=== PATIENT | female | born 1985 | race Caucasian/White ===

== ENCOUNTER → 2019-07-26 | Outpatient (CLI) | payer BC ==
[2019-07-26 17:47] LABS: HEMATOCRIT 39 % (35-52); HEMOGLOBIN 13.5 G/DL (11.5-16.0); LYMPHOCYTES % (AUTO) 22 % (12-44); MEAN CORPUSCULAR HEMOGLOBIN 30 PG (25-34); MEAN CORPUSCULAR HGB CONC 35 G/DL (32-36); MEAN CORPUSCULAR VOLUME 86 FL (80-99); MEAN PLATELET VOLUME 8.7 FL (7.4-10.4); MONOCYTES % (AUTO) 6 % (0-12); NEUTROPHILS % (AUTO) 71 % (42-75); PLATELET COUNT 330 10^3/uL (130-400); RED CELL DISTRIBUTION WIDTH 12.4 % (10.0-14.5); WHITE BLOOD COUNT 13.3 10^3/uL (4.3-11.0)
[2019-07-26 17:48] LABS: BASOPHILS # (AUTO) 0.1 10^3/uL (0.0-0.1); BASOPHILS % (AUTO) 0 % (0-10); EOSINOPHILS # (AUTO) 0.1 10^3/uL (0.0-0.3); EOSINOPHILS % (AUTO) 1 % (0-10); MONOCYTES # (AUTO) 0.8 X 10^3 (0.0-1.0); NEUTROPHILS # (AUTO) 9.4 X 10^3 (1.8-7.8)
== END ==
LOC: FS 17:11
PROVIDERS: ATTEND Family Medicine
DX: Z02.89 Encounter for other administrative examinations (principal)
CPT/HCPCS: 85025; 86592; 86703; 86705; 86706; 86765; 86850; 86900; 86901; 87088; 87340

== ENCOUNTER → 2019-09-27 | Outpatient (CLI) | payer BC | LOC: LAB FS 16:39 | PROVIDERS: ATTEND Family Medicine | DX: Z34.00 Encounter for supervision of normal first pregnancy, unspecified trimester (principal); Z3A.00 Weeks of gestation of pregnancy not specified | CPT/HCPCS: 36415; 82105; 82677; 84702; 86336; 87491; 87591 ==

== ENCOUNTER → 2019-11-29 | Outpatient (CLI) | payer BC ==
[2019-11-29 10:04] LABS: HEMATOCRIT 31 % (35-52); HEMOGLOBIN 10.4 G/DL (11.5-16.0); MEAN CORPUSCULAR HEMOGLOBIN 29 PG (25-34); MEAN CORPUSCULAR HGB CONC 33 G/DL (32-36); MEAN CORPUSCULAR VOLUME 87 FL (80-99); WHITE BLOOD COUNT 10.7 10^3/uL (4.3-11.0)
[2019-11-29 10:05] LABS: BASOPHILS % (AUTO) 0 % (0-10); EOSINOPHILS # (AUTO) 0.1 10^3/uL (0.0-0.3); EOSINOPHILS % (AUTO) 1 % (0-10); LYMPHOCYTES # (AUTO) 1.9 X 10^3 (1.0-4.0); LYMPHOCYTES % (AUTO) 18 % (12-44); MEAN PLATELET VOLUME 8.2 FL (7.4-10.4); MONOCYTES # (AUTO) 0.8 X 10^3 (0.0-1.0); MONOCYTES % (AUTO) 8 % (0-12); NEUTROPHILS # (AUTO) 7.9 X 10^3 (1.8-7.8); NEUTROPHILS % (AUTO) 73 % (42-75); PLATELET COUNT 292 10^3/uL (130-400); RED CELL DISTRIBUTION WIDTH 12.4 % (10.0-14.5)
== END ==
LOC: LAB FS 09:36
PROVIDERS: ATTEND Family Medicine
DX: Z34.00 Encounter for supervision of normal first pregnancy, unspecified trimester (principal)
CPT/HCPCS: 36415; 82950; 85025; 86780

== ENCOUNTER → 2020-01-27 | Outpatient (CLI) | payer BC | LOC: LAB FS 15:06 | PROVIDERS: ATTEND Family Medicine | DX: Z34.90 Encounter for supervision of normal pregnancy, unspecified, unspecified trimester (principal) | CPT/HCPCS: 87081 ==

== ENCOUNTER 2020-02-23 07:27 | Inpatient (IN) | payer BC ==
[~2020-02-23] VITALS: Ht 149.9 cm; Wt 63.4 kg
[2020-02-23] VITALS (11 sets, daily range): BP systolic 113–139; BP diastolic 60–85
--- NOTE | 2020-02-23 07:34 | NUR ---
ALTAF TAMAYO presented to unit via W/C from ED, accompanied by S/O, with c/o CONTRACTIONS. ALTAF TAMAYO weighed, gowned, voided, and to bed. EFHM and TOCO applied, VS taken. ALTAF TAMAYO oriented to bed controls, call light, TV, heat, and A/C controls.
--- NOTE | 2020-02-23 07:54 | NUR ---
DR. ALVAREZ NOTIFIED OF PT'S ARRIVAL, C/O, SVE, REVIEW OF STRIP. ORDERS RECEIVED TO CONTINUE MONITORING FOR ONE HOUR AND RECHECK.
[2020-02-23] MEDS ORDERED: PNV11TAB5 PO (08:12)
--- NOTE | 2020-02-23 08:55 | NUR ---
DR. ALVAREZ CALLED, NO ANSWER, MESSAGE LEFT TO RETURN PHONE CALL.
--- NOTE | 2020-02-23 08:57 | NUR ---
DR. ALVAREZ CALLED UNIT, UPDATED ON LATEST SVE, REVIEW OF STRIP. NEW ORDERS RECEIVED.
[2020-02-23] MEDS ORDERED: D5 LR IV SOLUTION 1,000 ML IV ONE (09:05)
[2020-02-23] MEDS ORDERED: MINERAL OIL CONCENTRATE 99.9% 15 ML UDC TOP PRN (09:15)
[2020-02-23] MEDS: D5 LR IV SOLUTION 1,000 ML IV SCH ×2 (09:32→13:27)
[2020-02-23 09:50] LABS: BASOPHILS % (AUTO) 0 % (0-10); EOSINOPHILS % (AUTO) 0 % (0-10); HEMATOCRIT 42 % (35-52); HEMOGLOBIN 14.5 G/DL (11.5-16.0); LYMPHOCYTES # (AUTO) 1.6 X 10^3 (1.0-4.0); LYMPHOCYTES % (AUTO) 11 % (12-44); MEAN CORPUSCULAR HEMOGLOBIN 29 PG (25-34); MEAN CORPUSCULAR HGB CONC 35 G/DL (32-36); MEAN CORPUSCULAR VOLUME 83 FL (80-99); MEAN PLATELET VOLUME 10.2 FL (7.4-10.4); MONOCYTES # (AUTO) 0.7 X 10^3 (0.0-1.0); MONOCYTES % (AUTO) 5 % (0-12); NEUTROPHILS # (AUTO) 11.7 X 10^3 (1.8-7.8); NEUTROPHILS % (AUTO) 83 % (42-75); PLATELET COUNT 225 10^3/uL (130-400); WHITE BLOOD COUNT 14.1 10^3/uL (4.3-11.0)
[2020-02-23 09:55] LABS: BILIRUBIN,URINE NEGATIVE (NEGATIVE); CLARITY,URINE SL CLOUDY; COLOR,URINE YELLOW; GLUCOSE, URINE (UA) NEGATIVE (NEGATIVE); KETONES,URINE NEGATIVE (NEGATIVE); LEUKOCYTE ESTERASE ,URINE NEGATIVE (NEGATIVE); NITRITE,URINE NEGATIVE (NEGATIVE); PH,URINE 6.5 (5-9); PROTEIN,URINE TRACE (NEGATIVE)
--- OUTSIDE RECORDS SUMMARY | 2020-02-23 09:57 | XMS REPORT | Continuity of Care Document ---
Author Organization Unknown Address Unknown Phone Unavailable Allergies There is no data. Medications There is no data. Problems Date Dx Coded Attending Type Code Diagnosis Diagnosed By 07/30/2019 MAHI ALVAREZ MD Ot Z02.89 ENCOUNTER FOR OTHER ADMINISTRATIVE EXAMI 08/12/2019 MAHI ALVAREZ MD Ot Z02.89 ENCOUNTER FOR OTHER ADMINISTRATIVE EXAMI 09/29/2019 MAHI ALVAREZ MD Ot Z34.00 ENCNTR FOR SUPRVSN OF NORMAL FIRST PREGN 09/29/2019 MAHI ALVAREZ MD Ot Z3A.00 WEEKS OF GESTATION OF NOT SPEC 10/14/2019 MAHI ALVAREZ MD Ot Z34.00 ENCNTR FOR SUPRVSN OF NORMAL FIRST PREGN 10/14/2019 MAHI ALVAREZ MD Ot Z3A.00 WEEKS OF GESTATION OF NOT SPEC 10/22/2019 MAHI ALVAREZ MD Ot Z34.00 ENCNTR FOR SUPRVSN OF NORMAL FIRST PREGN 10/22/2019 MAHI ALVAREZ MD Ot Z3A.00 WEEKS OF GESTATION OF NOT SPEC 11/29/2019 MAHI ALVAREZ MD Ot Z02.89 ENCOUNTER FOR OTHER ADMINISTRATIVE EXAMI 11/29/2019 MAHI ALVAREZ MD Ot Z34.00 ENCNTR FOR SUPRVSN OF NORMAL FIRST PREGN 11/29/2019 MAHI ALVAREZ MD Ot Z3A.00 WEEKS OF GESTATION OF NOT SPEC 11/30/2019 MAHI ALVAREZ MD Ot Z34.00 ENCNTR FOR SUPRVSN OF NORMAL FIRST PREGN 12/17/2019 MAHI ALVAREZ MD Ot Z34.00 ENCNTR FOR SUPRVSN OF NORMAL FIRST PREGN 01/17/2020 MAHI ALVAREZ MD Ot Z34.01 ENCNTR FOR SUPRVSN OF NORMAL FIRST PREG, 01/31/2020 MAHI ALVAREZ MD Ot Z34.90 ENCNTR FOR SUPRVSN OF NORMAL , 02/14/2020 KIM TURNER, MAHI [place] Ot Z34.90 ENCNTR FOR SUPRVSN OF NORMAL , Procedures There is no data. Results Test Result Range HCG, QUANTITATIVE - 07/02/19 16:31 [place], [place] [address] mIU/mL NRG Bacterial urine culture - 07/26/19 17:20 Bacterial urine culture NG NRG Complete blood count (CBC) with automate d white blood cell (WBC) differential - 07/26/19 17:29 Blood leukocytes automated count (number/volume) 13.3 10*3/uL 4.3-11.0 Blood erythrocytes automated count (number/volume) 4.50 10*6/uL 4.35-5.85 Venous blood hemoglobin measurement (mass/volume) 13.5 g/dL 11.5-16.0 Blood hematocrit (volume fraction) 39 % 35-52 Automated erythrocyte mean corpuscular volume 86 [ foz_us] 80-99 Automated erythrocyte mean corpuscular h emoglobin (mass per erythrocyte) 30 pg 25-34 Automated erythrocyte mean corpuscular h emoglobin concentration measurement (mass/volume) 35 g/dL 32-36 Automated erythrocyte distribution width ratio 12. 4 % 10.0- 14.5 Automated blood platelet count (count/volume) 330 10*3/uL 130-400 Automated blood platelet mean volume measurement 8.7 [foz_us] 7.4-10.4 Automated blood neutrophils/100 leukocytes 71 % 42-75 Automated blood lymphocytes/100 leukocytes 22 % 12-44 Blood monocytes/100 leukocytes 6 % 0-12 Automated blood eosinophils/100 leukocytes 1 % 0-10 Automated blood basophils/100 leukocytes 0 % 0-10 Blood neutrophils automated count (number/volume) 9.4 10*3 1.8-7.8 Blood lymphocytes automated count (number/volume) 3.0 10*3 1.0-4.0 Blood monocytes automated count (number/volume) 0. 8 10*3 0.0-1.0 Automated eosinophil count 0.1 10*3/uL 0 .0-0.3 Automated blood basophil count (count/volume) 0.1 10*3/uL 0.0-0.1 Blood type T Indirect antibody screen pa de - 07/26/19 17:29 WRISTBAND NUMBER TNP NRG ABO+Rh group AP NRG Blood group antibody screen NEGATIVE NR G Human immunodeficiency virus (HIV) type 1 and 2 antibody detection - 07/26/19 17:29 Serum HIV 1+2 antibody detection by immunoblot Non-Reactive Non-Reactive Serum measles virus IgG and IgM panel - 07/26/19 17:29 Serum measles virus IgG antibody detection 21.2 0.0-13.4 Serum measles virus IgM antibody assay (units/volume) < <1:10 RUBEOLA IGG INT Positive Negative Serum reagin antibody assay (units/volum e) by RPR - 07/26/19 17:29 Serum reagin antibody assay (units/volume) by RPR NRG Hepatitis B profile - 07/26/19 17:29 HEPATITIS B CORE HOLLIE IGM Non-Reactive N on-Reactive Confirmatory quantitative serum or plasm a hepatitis B virus surface antigen measurement Non-Reactive Non-Reactive Serum hepatitis B virus surface antibody assay (units/ volume) 266.41 % >=12.00 [id number] - 09/27/19 16:49 [id number] 0.72 % NRG Race or ethnicity [[place]] White NRG HCG MAT SCR 13.7 [iU]/mL NRG Insulin dependent diabetes mellitus [Presence] No NRG Mother's body weight --at delivery 121 % NRG Number of fetuses 1 % NRG Delivery date US composite estimate LMP NRG History of Neural tube defect Qualitative No NRG Down's syndrome [Minimum Data Set] No NRG INHIB A MAT SCR 156 pg/mL NRG Inhibin A [Multiple of the median] in Serum or Plasma 0.80 NRG NTD RISK <1:5000 NRG Age NRG DS RISK <1:5000 <1:270 Trisomy 18 risk [Likelihood] in Fetus <1:100 Gestational age in weeks 19.0 NRG Choriogonadotropin [Multiple of the median] in Serum o r Plasma 0.56 NRG Estriol (E3).unconjugated [Mass/volume] in Serum or Pl asma 1.44 % NRG Estriol (E3) [Multiple of the median] in Serum or Plas ma 0.80 NRG GLUC GENIE 1 HR GEST POST GLUCOL - 0 09:50 GLUC GENIE 1 HR GEST POST GLUCOL NRG Serum reagin antibody assay (units/volum e) by RPR - 11/29/19 09:50 Serum reagin antibody assay (units/volume) by RPR Non-Reactive Non-Reactive Streptococcus agalactiae detection by or ganism specific culture - 01/27/20 09:16 Encounters ACCT No. Visit Date/Time Discharge Status Pt. Type Provider Facility Loc./Unit Complaint [id number] 10/19/2019 08:00:00 10/19/2019 23:59: 59 CLS Outpatient MAHI ALVAREZ [facility] [id number] 07/02/2019 16:15:00 Document Registration [id number] 01/27/2020 15:06:00 23:59:59 CLS Outpatient MAHI ALVAREZ MD [facility] FS [id number] 11/29/2019 09:36:00 23:59:59 CLS Outpatient MAHI ALVAREZ MD [facility] FS SUPERVISION OF NORMAL P PENNY [id number] 09/27/2019 16:39:00 23:59:59 CLS Outpatient MAHI ALVAREZ MD [facility] FS Z34.00 [id number] 07/26/2019 17:11:00 23:59:59 CLS Outpatient MAHI ALVAREZ MD [facility] FS
[2020-02-23 10:04] LABS: BACTERIA,URINE FEW /HPF; RBC,URINE 25-50 /HPF; SQUAMOUS EPITHELIAL CELL,UR 25-50 /HPF
[2020-02-23] MEDS ORDERED: LIDOCAINE 1% INJ 20 ML 20 ML VIAL ONE (10:39)
[2020-02-23] MEDS ORDERED: OXYTOCIN PRE-MIX DRIP 500 ML IV ONE ×2 (10:39→16:11)
--- NOTE | 2020-02-23 11:59 | History & Physical-OB ---
OB - Chief Complaint & HPI Date/Time Date of Admission: Date of Admission: Feb 23, 2020 at 08:57 Date seen by a Provider: Feb 23, 2020 Time Seen by a Provider: 11:45 Chief Complaint/History OB-Reason for Admission/Chief: Onset of Labor Hx : 1 Hx Para: 0 Expected Date of Delivery: Feb 21, 2020 Gestational Age in Weeks: 40 Gestational Age in Days: 2 Admission Nurse Assessment Rev: Yes Allergies and Home Medications Allergies Coded Allergies: No Known Drug Allergies (Unverified , 02/23/20) Home Medications Sei360/FA/Omega3/Dha/Fish Oil 1 Each Tab.chew, 2 EACH PO DAILY, (Reported) Patient Home Medication List Home Medication List Reviewed: Yes OB - History Hx of Present Care: Yes Ultrasounds: No ultrasounds, Normal mid trimester US Obstetrical Complications: None Medical Complications: None Obstetrical History Hx : 1 Hx Para: 0 Hx Total # of Abortions (Spona: 0 Patient Past Medical History previously healthy Social History/Family History Alcohol Use: Denies Use Recreational Drug Use: No OB - Admission Exam Physical Exam Vitals: Vital Signs 02/23/20 08:09 Temp 36.7 Pulse 80 Resp 18 Pulse Ox 93 O2 Delivery Room Air HEENT: NCAT Heart: Rhythm Normal Lungs: Clear Abdomen: Gravid Extremities: Normal Reflexes: Normal Cervical Dilatation: 7cm Effacement: 100% Station: -1 Membranes: Intact Heart Rate: 140's Accelerations: No Accelerations Decelerations: Early Decelerations Short Term Variability: Present Financial Reporting Manager Variability: Minimal (3-5) Labs Laboratory Tests Test 02/23/20 07:40 02/23/20 09:29 Range/Units Urine Color YELLOW Urine Clarity SL CLOUDY Urine pH 6.5 5-9 Urine Specific [place] 1.020 1.016-1.022 Urine Protein TRACE H NEGATIVE Urine Glucose (UA) NEGATIVE NEGATIVE Urine Ketones NEGATIVE NEGATIVE Urine Nitrite NEGATIVE NEGATIVE Urine Bilirubin NEGATIVE NEGATIVE Urine Urobilinogen 0.2 < = 1.0 MG/DL Urine Leukocyte Esterase NEGATIVE NEGATIVE Urine RBC (Auto) 3+ H NEGATIVE Urine RBC 25-50 H /HPF Urine WBC NONE /HPF Urine Squamous Epithelial Cells 25-50 H /HPF Urine Crystals NONE /LPF Urine Bacteria FEW H /HPF Urine Casts NONE /LPF Urine Mucus NEGATIVE /LPF Urine Culture Indicated NO White Blood Count 14.1 H 4.3-11.0 10^3/uL Red Blood Count 5.02 4.35-5.85 10^6/uL Hemoglobin 14.5 11.5-16.0 G/DL Hematocrit 42 35-52 % Mean Corpuscular Volume 83 80-99 FL Mean Corpuscular Hemoglobin 29 25-34 PG Mean Corpuscular Hemoglobin Concent 35 32-36 G/DL Red Cell Distribution Width 18.0 H 10.0-14.5 % Platelet Count 225 130-400 10^3/uL Mean Platelet Volume 10.2 7.4-10.4 FL Neutrophils (%) (Auto) 83 H 42-75 % Lymphocytes (%) (Auto) 11 L 12-44 % Monocytes (%) (Auto) 5 0-12 % Eosinophils (%) (Auto) 0 0-10 % Basophils (%) (Auto) 0 0-10 % Neutrophils # (Auto) 11.7 H 1.8-7.8 X 10^3 Lymphocytes # (Auto) 1.6 1.0-4.0 X 10^3 Monocytes # (Auto) 0.7 0.0-1.0 X 10^3 Eosinophils # (Auto) 0.0 0.0-0.3 10^3/uL Basophils # (Auto) 0.0 0.0-0.1 10^3/uL OB - Assessment/Plan/Diagnosis Assessment Assessment: active labor Admission Dx Labor at 40 2/7 wga. Admission Status: Inpatient Order (span 2 midnights) Reason for Inpatient Admission: Labor. Plan Plan: Expectant Management Other Plan GBS negative. Continue to monitor. Having periods of increased variability and accels. MAHI ALVAREZ MD Feb 23, 2020 11:59
--- NOTE | 2020-02-23 15:18 | OB Labor & Delivery Record ---
Vag Delivery Note Vag Delivery Note Date of Delivery: 02/23/20 Preoperative Diagnosis: Radha Wick is a (34 /Para 1 / 0,Gestational Age (wks)40with [2 days] Postoperative Diagnosis: Same Surgeon: MAHI ALVAREZ Ice Cream Freezer Helper: [none] Anesthesia: [none] Delivery Type: [] Findings: [] Viable [female] infant, apgars [8/9], weight [8 pounds 9 ounces] Lacerations: Intact placenta with 3 vessel cord. No nuchal cord, body cord or shoulder dystocia Estimated Blood Loss: [300] ml Complications: None Condition: Stable Description of Procedure: The patient is a 34 year old female who presented [in labor]. She was admitted and informed consent was obtained. Her labor course was remarkable for [nothing] She progressed to complete dilatation and began to push. She was then set up for delivery. The infant's head was delivered atraumatically in the [OA] position. The shoulders and remainder of the 's body were then delivered without difficulty. Upon delivery, the head was held below the level of the perineum and the mouth and nares were bulb suctioned. The cord was doubly clamped and cut by father of the baby on maternal abdomen after 120 seconds. An intact placenta with 3-vessel cord delivered via Silvia and there was found to be minimal bleeding.~ Vigorous fundal massage was performed and the fundus was found to be firm. IV oxytocin was given. Examination of the vagina and perineum revealed a [2nd degree perineal] laceration repaired in the usual fashion with 3-0 vicryl suture. Following the repair, sponge, instrument and needle counts were correct. Mom and baby were both in stable condition in the labor suite. Vitals - Labs Vital Signs - I&O Vital Signs Date Time Temp Pulse Resp B/P (MAP) Pulse Ox O2 Delivery O2 Flow Rate FiO2 02/23/20 11:08 36.3 02/23/20 08:09 36.7 80 18 93 Room Air Labs Laboratory Tests 02/23/20 07:40: Urine Color YELLOW, Urine Clarity SL CLOUDY, Urine pH 6.5, Urine Specific [place] 1.020, Urine Protein TRACEH, Urine Glucose (UA) NEGATIVE, Urine Ketones NEGATIVE, Urine Nitrite NEGATIVE, Urine Bilirubin NEGATIVE, Urine Urobilinogen 0.2, Urine Leukocyte Esterase NEGATIVE, Urine RBC (Auto) 3+H, Urine RBC 25-50H, Urine WBC NONE, Urine Squamous Epithelial Cells 25-50H, Urine Crystals NONE, Urine Bacteria FEWH, Urine Casts NONE, Urine Mucus NEGATIVE, Urine Culture Indicated NO 02/23/20 09:29: White Blood Count 14.1H, Red Blood Count 5.02, Hemoglobin 14.5, Hematocrit 42, Mean Corpuscular Volume 83, Mean Corpuscular Hemoglobin 29, Mean Corpuscular Hemoglobin Concent 35, Red Cell Distribution Width 18.0H, Platelet Count 225, Mean Platelet Volume 10.2, Neutrophils (%) (Auto) 83H, Lymphocytes (%) (Auto) 11L, Monocytes (%) (Auto) 5, Eosinophils (%) (Auto) 0, Basophils (%) (Auto) 0, Neutrophils # (Auto) 11.7H, Lymphocytes # (Auto) 1.6, Monocytes # (Auto) 0.7, Eosinophils # (Auto) 0.0, Basophils # (Auto) 0.0 MAHI ALVAREZ MD Feb 23, 2020 15:18
[2020-02-23] MEDS ORDERED: OXYTOCIN PRE-MIX DRIP 500 ML IV SCH ×2 (16:06→16:15)
[2020-02-23] MEDS ORDERED: BENZOCAINE/MENTHOL (DERMOPLAST) 60 ML CAN TP PRN (16:15)
[2020-02-23] MEDS ORDERED: MEASLES,MUMPS,RUBELLA 1 EA INJ SQ ONE (16:15)
[2020-02-23] MEDS ORDERED: TETANUS,DIPTH,PERTUSS P/F (BOOSTRIX) 0.5 ML VIAL IM ONE (16:15)
[2020-02-23] MEDS: IBUPROFEN 800 MG (MOTRIN) TAB PO SCH ×2 (16:58→23:04)
[2020-02-23] MEDS: WITCH HAZEL(TUCKS) 40 EA JAR TOP PRN (16:59)
--- NOTE | 2020-02-23 17:15 | NUR ---
REFER TO LABOR FLOW SHEET.
--- NOTE | 2020-02-23 19:30 | NUR ---
pt resting in bed, assessment completed. pt hasn't been up to the bathroom since delivery. Pt assisted to the bathroom. pt able to void small amount. pericare completed. pad changed. pt assisted back to bed.
[2020-02-23] MEDS: DOCUSATE SODIUM 100 MG (COLACE) CAP PO SCH (19:42)
[2020-02-23] MEDS: ACETAMINOPHEN 500 MG TAB (TYLENOL) PO SCH (19:43)
--- NOTE | 2020-02-23 22:00 | NUR ---
Pt reports that she just had a large void. bleeding light/moderate. asking for ice pack. one was provided. s/o at bedside. pt denies any further needs.
[2020-02-24 01:07] VITALS: BP 131/71
[2020-02-24] MEDS: ACETAMINOPHEN 500 MG TAB (TYLENOL) PO SCH ×2 (03:03→12:28)
[2020-02-24 05:51] LABS: BASOPHILS % (AUTO) 0 % (0-10); EOSINOPHILS % (AUTO) 0 % (0-10); HEMATOCRIT 34 % (35-52); HEMOGLOBIN 11.7 G/DL (11.5-16.0); LYMPHOCYTES # (AUTO) 2.2 X 10^3 (1.0-4.0); LYMPHOCYTES % (AUTO) 14 % (12-44); MEAN CORPUSCULAR HEMOGLOBIN 29 PG (25-34); MEAN CORPUSCULAR HGB CONC 34 G/DL (32-36); MEAN CORPUSCULAR VOLUME 85 FL (80-99); MEAN PLATELET VOLUME 9.3 FL (7.4-10.4); MONOCYTES # (AUTO) 1.3 X 10^3 (0.0-1.0); MONOCYTES % (AUTO) 8 % (0-12); NEUTROPHILS # (AUTO) 11.8 X 10^3 (1.8-7.8); NEUTROPHILS % (AUTO) 77 % (42-75); PLATELET COUNT 182 10^3/uL (130-400); RED CELL DISTRIBUTION WIDTH 17.7 % (10.0-14.5); WHITE BLOOD COUNT 15.3 10^3/uL (4.3-11.0)
[2020-02-24] MEDS: IBUPROFEN 800 MG (MOTRIN) TAB PO SCH ×3 (05:56→17:57)
[2020-02-24 06:02] VITALS: BP 135/81
--- NOTE | 2020-02-24 10:30 | NUR ---
Report rec'd from Jarret Alarcon Rn. Cares assumed at this time.
[2020-02-24 12:26] VITALS: BP 143/75
[2020-02-24] MEDS: DOCUSATE SODIUM 100 MG (COLACE) CAP PO SCH (12:27)
--- NOTE | 2020-02-24 14:49 | Discharge Summary ---
Discharge Inst-Women's Serv Reconcile Patient Problems Problems Reviewed?: Yes Depart Medications New, Converted or Re-Newed RX: Other (OTC medications) Follow Up/Instructions Goal/Follow Up: [address] Alvarez Activity Activity: Activity as Tolerated Driving Instructions: You May Drive NO SMOKING: NO SMOKING Nothing Inside Vagina: No Douching, No [place], No Tampons Diet Discharge Diet: No Restrictions Symptoms to Report to : Fever Over 101 Degrees F, Vaginal Bleeding Increase For Any Problems or Questions: Contact Your Physician MAHI ALVAREZ MD Feb 24, 2020 14:49
--- NOTE | 2020-02-24 14:52 | Discharge Summary ---
Diagnosis/Chief Complaint Date of Admission Feb 23, 2020 at 08:57 Date of Discharge February 24, 2020 Admission Diagnosis Admission Diagnosis Normal term labor at 40 2/7 wga. Discharge Diagnosis vaginal delivery at 40 2/7 wga. Problems/Diagnosis: (1) care following vaginal delivery Discharge Summary-OBS Procedures None. Discharge Physical Examination Allergies: Coded Allergies: No Known Drug Allergies (Unverified , 02/23/20) Vitals & I&Os Intake and Output 02/24/20 00:00 Intake Total 2000 ml Balance 2000 ml Vital Sign - Last 12Hours Date Time Temp Pulse Resp B/P (MAP) Pulse Ox O2 Delivery O2 Flow Rate FiO2 02/24/20 12:26 36.8 84 18 143/75 (97) Room Air 02/23/20 13:23 15.00 02/23/20 08:09 93 General Appearance: Alert, Oriented X3 HEENT: Atraumatic Respiratory: Clear to Auscultation Cardiovascular: Regular Rate Abdominal: Normal Bowel Sounds Extremities: No Edema Skin: No Rashes Neuro: Normal Gait Psych/Mental Status: Mental Status NL Hospital Course Was the Problem List Reviewed?: Yes course unremarkable. Labs Laboratory Tests 02/24/20 05:40: White Blood Count 15.3H, Red Blood Count 4.02L, Hemoglobin 11.7, Hematocrit 34L, Mean Corpuscular Volume 85, Mean Corpuscular Hemoglobin 29, Mean Corpuscular Hemoglobin Concent 34, Red Cell Distribution Width 17.7H, Platelet Count 182, Mean Platelet Volume 9.3, Neutrophils (%) (Auto) 77H, Lymphocytes (%) (Auto) 14, Monocytes (%) (Auto) 8, Eosinophils (%) (Auto) 0, Basophils (%) (Auto) 0, Neutrophils # (Auto) 11.8H, Lymphocytes # (Auto) 2.2, Monocytes # (Auto) 1.3H, Eosinophils # (Auto) 0.0, Basophils # (Auto) 0.0 Discharge Instructions to patient/family Please see electronic discharge instructions given to patient. Discharge Medications Reviewed and agree with Discharge Medication list on patient's Discharge Instruction sheet Clinical Quality Measures DVT/VTE Risk/Contraindication: Risk Factor Score Per Nursin RFS Level Per Nursing on Admit: 1=Low/No VTE PPX MAHI ALVAREZ MD Feb 24, 2020 14:52
--- NOTE | 2020-02-24 18:09 | NUR ---
Scheduled motrin given. Discharge instructions explained to pt with copy provided to pt. Pt verbalizes understanding of instructions and signs to verify. Pt and S.O. notified of rooming in policy. Both verbalize understanding. Pt and S.O. to remain in room 309 with all personal belongings as boarder parent.
[2020-02-24] MEDS ORDERED: WITCH HAZEL(TUCKS) 40 EA JAR ONE (20:09)
[2020-02-24] MEDS: WITCH HAZEL(TUCKS) 40 EA JAR TOP PRN (20:12)
--- NOTE | 2020-02-24 20:12 | NUR ---
Patient changed to boarder status before tucks administered.
--- NOTE | 2020-02-25 08:00 | NUR ---
Mother in room caring for . Denies complaint of pain at this time. Up in chair at bedside, feeding . Addendum: 02/25/20 at 1422 by ANGEL REDMOND RN Actual date of assessment 02/24/20
== END 2020-02-24 18:09 | disposition home or self-care (01) | DRG 807 ==
LOC: WSo 07:27 → LDRP 07:28 → WSo 08:57 → LDRP 08:57
PROVIDERS: ADMIT Family Medicine; ATTEND Family Medicine
PROC: 10E0XZZ Delivery of Products of Conception, External Approach (ICD-10-PCS; principal; 2020-02-23)
PROC: 0KQM0ZZ Repair Perineum Muscle, Open Approach (ICD-10-PCS; 2020-02-23)
DX: O48.0 Post-term pregnancy (principal); Z37.0 Single live birth; O70.1 Second degree perineal laceration during delivery; Z3A.40 40 weeks gestation of pregnancy
CPT/HCPCS: 36415; 81000; 85025; 86850; 86900; 86901; 99212

== ENCOUNTER → 2020-04-12 | Outpatient (CLI) | payer BC ==
[~2020-04-12] MED LIST: HYDR-4226 PO; IBUP-1773 PO; PNV11TAB5 PO
--- NOTE | 2020-04-12 14:04 | Diagnostic Imaging Report ---
INDICATION: Evaluate IUD location. TIME OF EXAM: 01:45 p.m. FINDINGS: Images of the abdomen and pelvis demonstrate IUD in the midline/left para-midline of the pelvis. The IUD is tilted in a more horizontal position. Orientation is atypical. Bowel gas pattern is unremarkable. No free air is seen. No pathologic calcifications are seen. IMPRESSION: IUD is located in the left para-midline of the pelvis, however the orientation is abnormal, horizontally oriented. Pelvic sonography or CT would be useful for further characterization. Dictated by: Dictated on workstation # [id number]
== END ==
LOC: RAD FS 13:23
PROVIDERS: ATTEND Family Medicine
DX: T83.32XA Displacement of intrauterine contraceptive device, initial encounter (principal)
CPT/HCPCS: 74018

== ENCOUNTER 2020-04-13 09:30 | Outpatient (CLI) | payer BC ==
[~2020-04-13] VITALS: Ht 152.4 cm; Wt 54.5 kg
[~2020-04-13 09:30] MED LIST changes: -HYDR-4226 PO; -IBUP-1773 PO
[2020-04-14] MEDS ORDERED: IBUP-1773 PO (08:53)
[2020-04-14] MEDS ORDERED: HYDR-4226 PO (08:53)
== END 2020-04-13 10:14 | disposition home or self-care (01) ==
LOC: PREOP 09:30
PROVIDERS: ATTEND Obstetrics & Gynecology
DX: Z01.818 Encounter for other preprocedural examination (principal)

== ENCOUNTER 2020-04-14 07:45 | Day surgery (SDC) | payer BC ==
[~2020-04-14] VITALS: Ht 152.4 cm; Wt 54.5 kg
[2020-04-14] VITALS (10 sets, daily range): BP systolic 113–124; BP diastolic 43–82
[2020-04-14] MEDS ORDERED: metroNIDAZOLE 500MG/100ML IVPB 100 ML IV ONE (08:00)
[2020-04-14] MEDS ORDERED: ceFAZolin INJECTION 1,000 MG in WATER (STERILE) FOR INJECTION 10 ML IV ONE (08:00)
[2020-04-14] MEDS: LACTATED RINGERS 1,000 ML IV PRN ×2 (08:14→09:45)
[2020-04-14 08:22] LABS: BASOPHILS % (AUTO) 1 % (0-10); EOSINOPHILS # (AUTO) 0.2 10^3/uL (0.0-0.3); EOSINOPHILS % (AUTO) 4 % (0-10); HEMATOCRIT 38 % (35-52); HEMOGLOBIN 12.8 G/DL (11.5-16.0); LYMPHOCYTES # (AUTO) 2.8 X 10^3 (1.0-4.0); LYMPHOCYTES % (AUTO) 47 % (12-44); MEAN CORPUSCULAR HEMOGLOBIN 29 PG (25-34); MEAN CORPUSCULAR HGB CONC 34 G/DL (32-36); MEAN CORPUSCULAR VOLUME 86 FL (80-99); MEAN PLATELET VOLUME 8.8 FL (7.4-10.4); MONOCYTES # (AUTO) 0.4 X 10^3 (0.0-1.0); MONOCYTES % (AUTO) 7 % (0-12); NEUTROPHILS # (AUTO) 2.6 X 10^3 (1.8-7.8); NEUTROPHILS % (AUTO) 43 % (42-75); PLATELET COUNT 218 10^3/uL (130-400); WHITE BLOOD COUNT 6.1 10^3/uL (4.3-11.0)
[2020-04-14] MEDS ORDERED: BUPIVACAINE 0.25% 30 ML (SENSORCAINE) VIAL ONE (08:41)
--- NOTE | 2020-04-14 08:45 | Progress Note-Pre Operative ---
Pre-Operative Progress Note H&P Reviewed The H&P was reviewed, patient examined and no changes noted. Date Seen by Provider: Apr 14, 2020 Time Seen by Provider: 08:40 Date H&P Reviewed: Apr 14, 2020 Time H&P Reviewed: 08:40 Pre-Operative Diagnosis: Retained IUD SARAHY SAUCEDO DO Apr 14, 2020 08:45
[2020-04-14] MEDS ORDERED: D5 LR IV SOLUTION 1,000 ML IV SCH (08:48)
[2020-04-14] MEDS ORDERED: IBUP-1773 PO (08:53)
[2020-04-14] MEDS ORDERED: HYDR-4226 PO (08:53)
--- NOTE | 2020-04-14 08:54 | Discharge Inst-Women's Service ---
Discharge Inst-Women's Serv Depart Medication/Instructions New, Converted or Re-Newed RX: RX on Chart Problems Reviewed?: Yes Consults/Follow Up Additional Follow Up: Yes Orders/Referrals Dr. Tran in 7-10 days Activity Activity: Activity as Tolerated (do not drive while still taking hydrocodone) Driving Instructions: You May Drive NO SMOKING: NO SMOKING Nothing Inside Vagina: No Douching, No [place], No Tampons Diet Discharge Diet: No Restrictions Symptoms to Report to : Bleeding Excessive For Any Problems or Questions: Contact Your Physician Skin/Wound Care Infection Signs and Symptoms: Increased Redness, Foul Odor of Wound, Increased Drainage, Skin Itchy or Has a Rash, Increased Swelling, Temperature Above 101 F Operative Area Clean and Dry: Keep Incision Clean/Dry Stitches/[place]/Dermabond: Dermabond, Care of Stitches Bathing Instructions: SARAHY Jay DO Apr 14, 2020 08:54
[2020-04-14] MEDS ORDERED: HYDROcodone/APAP 5 MG/325 MG (LORTAB) TAB PO PRN (09:00)
[2020-04-14] MEDS ORDERED: ONDANSETRON 4 MG/2 ML (SDV) Z0FRAN IVP PRN (09:00)
[2020-04-14] MEDS ORDERED: KETOROLAC 30 MG/ML VIAL IVP ONE (09:00)
[2020-04-14] MEDS ORDERED: SEVOFLURANE (ULTANE) 15 ML INHAL SOLN ONE ×2 (09:06→09:50)
[2020-04-14] MEDS ORDERED: LIDOCAINE PF 2% 5 ML (XYLOCAINE) VIAL ONE (09:06)
[2020-04-14] MEDS ORDERED: proPOfol 200 MG/20 ML (DIPRIVAN) VIAL IV ONE (09:06)
[2020-04-14] MEDS ORDERED: ROCURONIUM 10 MG/ML 5 ML SYRINGE IV ONE (09:06)
[2020-04-14] MEDS ORDERED: MIDAZOLAM 2 MG/2 ML (VERSED) VIAL ONE (09:07)
[2020-04-14] MEDS ORDERED: fentaNYL INJECTION 100 MCG/2 ML AMP ONE (09:07)
[2020-04-14] MEDS ORDERED: ONDANSETRON 4 MG/2 ML (SDV) Z0FRAN ONE (09:10)
[2020-04-14] MEDS ORDERED: NEOSTIGMINE 3 MG/3 ML VIAL ONE (09:55)
[2020-04-14] MEDS ORDERED: GLYCOPYRROLATE 0.2 MG/ML (ROBINUL) 2 ML VIAL ONE (09:55)
--- NOTE | 2020-04-14 10:25 | Anesthesia-General Post-Op ---
General Patient Condition Mental Status/LOC: Same as Preop Cardiovascular: Satisfactory Nausea/Vomiting: Absent Respiratory: Satisfactory Pain: Controlled Complications: Absent Post Op Complications Complications None Follow Up Care/Instructions Patient Instructions None needed. Anesthesia/Patient Condition Patient Condition Patient is doing well, no complaints, stable vital signs, no apparent adverse anesthesia problems. No complications reported per nursing. CHERELLE ULRICH CRNA Apr 14, 2020 10:25
[2020-04-14] MEDS ORDERED: morphine INJ 10 MG/ML 1ML (SYR OR VIAL) IVP ONE (10:30)
[2020-04-14] MEDS ORDERED: MEPERIDINE (DEMEROL) INJ 50 MG/ML IVP ONE (10:30)
[2020-04-14] MEDS: ONDANSETRON 4 MG/2 ML (SDV) Z0FRAN IVP PRN ×2 (11:18→11:19)
--- NOTE | 2020-04-14 12:30 | NUR ---
PT WAS OFFERED AND REFUSED PAIN MEDS X2 DURING POST OP STAY
--- NOTE | 2020-04-14 12:40 | NUR ---
UPON STANDING TO DRESS AND CHANGE PAD, PT HAD SOME BLEEDING AND WAS CONCERNED. REITERATED WITH PT THAT BLEEDING WAS NORMAL AND SHOULD BE EXPECTED. NEW PAD PROVIDED AND PT INTRUCTED THAT IF BLEEDING IS HEAVIER THAN A NORMAL PERIOD SHE SHOULD CALL PHYSICIAN. PT VERBALIZES UNDERSTANDING.
--- NOTE | 2020-04-14 14:25 | OPERATIVE REPORT ---
DATE OF SERVICE: PREOPERATIVE DIAGNOSIS: Perforated intraperitoneal IUD. POSTOPERATIVE DIAGNOSIS: Perforated intraperitoneal IUD. PROCEDURE PERFORMED: Laparoscopic retrieval of IUD. SURGEON: Sarahy Saucedo DO. ANESTHESIA: General endotracheal. ESTIMATED BLOOD LOSS: Minimal. URINE OUTPUT: 350 mL clear at the end of the procedure. FLUIDS: 1200 mL of lactated Ringer's solution. FINDINGS: A normal appearing external female genitalia and enlarged uterus, suspicious for a uterine fibroid in the fundus of the uterus. Bilateral grossly normal appearing fallopian tubes, bilateral grossly normal appearing ovaries and IUD in the posterior cul-de-sac. SPECIMEN SENT: None. INDICATIONS FOR PROCEDURE: This 34-year-old female was sent to my office as an urgent consult from Dr. Wheeler in [place]. She had placed an IUD in the patient earlier in the day, the patient developed acute pain and came back to the office and they could not find the IUD or the strings. Ultrasound revealed that there was no IUD in the uterine cavity. Therefore, she was sent to my office urgently When I saw the patient in the office, she described discomfort, but not any acute pain. She appeared stable and had no peritoneal signs. I discussed with the patient laparoscopic retrieval of IUD. Risks of procedure were discussed with the patient in detail including risk of bleeding, infection, damaging surrounding structures including, but not limited to the uterus itself, possible infertility, possible need for blood transfusion and possible laparotomy. After everything was discussed with the patient in detail, consent was obtained in the preoperative area and the patient was taken to the operating room. OPERATIVE REPORT IN DETAIL: Once in the operating room, general anesthesia was found to be adequate. She was placed in a dorsal lithotomy position, prepped and draped in a normal sterile fashion. A timeout was performed. A Simmons catheter was placed using sterile technique. A weighted speculum was inserted in the patient's vagina. A right angle retractor was used to visualize the cervix, which was grasped at 12 o'clock position using a long Allis clamp. I then attempted to retrieve the IUD from the uterus using a long narrow curved Mere and I was unsuccessful in doing so. I then sound the uterine cavity and depth was found to be 7 cm. I then placed a KrAcaciaer uterine manipulator to a depth of 7 cm deploying the balloon and removed all the other instruments from the patient's vagina, performed change of gloves and took my attention to the abdomen where infraumbilically I infiltrated this area using 0.25% Marcaine. I made a 5 mm incision with a knife and directed Veress needle through the incision until intraperitoneal placement was confirmed using a saline drop test. An opening pressure of 3 mmHg was noted. I proceeded to maximum pressure of 15 mmHg, at which point, I removed the Veress needle and introduced a 5 mm blunt laparoscopic trocar. Once this was in place, I was able to confirm intraperitoneal placement using the laparoscope. A brief scan of the upper abdominal anatomy appears grossly normal. I then had the patient placed in a steep Trendelenburg and with manipulation of the uterus in an anteversion fashion, I was able to see the IUD in the posterior cul-de-sac. I placed a second trocar; this is a suprapubic trocar. It is 5 mm. I placed the trocar under direct visualization of laparoscope. Once this was in place, I am able to retrieve the IUD without difficulty through the laparoscopic trocar site. I then copiously irrigated the pelvis using normal saline. There was no active bleeding noted from any of my dissection planes. I then removed the suprapubic trocar under direct visualization of the laparoscope. I had the patient taken out of steep Trendelenburg and released insufflation from the infraumbilical trocar site and removed this trocar as well. The skin was reapproximated using a Dermabond and Band-Aids were placed over the incisions. The Kronner uterine manipulator and Simmons catheter was removed at the end of the procedure. The patient tolerated the procedure well and was sent to the recovery area in a stable condition. Lap and sponge count was correct at the end of procedure. Instrument count was correct as well. One gram of Ancef and 500 mg of Flagyl were given preoperatively for infection prophylaxis. Job ID: [id number] DocumentID: [id number] Dictated Date: 04/14/2020 10:12:59 Carton Repairer Date: 04/14/2020 14:25:10 Dictated By: SARAHY SAUCEDO DO
== END 2020-04-14 12:45 | disposition home or self-care (01) ==
LOC: SDC 07:45
PROVIDERS: ATTEND Obstetrics & Gynecology
DX: T83.32XA Displacement of intrauterine contraceptive device, initial encounter (principal)
CPT/HCPCS: 36415; 84703; 85025; 86850; 86900; 86901; 87081